=== PATIENT | male | born 1940 | race Caucasian/White ===

== ENCOUNTER 2021-08-16 07:35 | Day surgery (SDC) | payer MEDICARE ==
[2021-08-14 08:44] LABS: BASOPHILS % (AUTO) 1.8 % (0.0-5.0); EOSINOPHILS % (AUTO) 4.7 % (0.0-8.0); HEMATOCRIT 43.4 % (42-54); LYMPHOCYTES % (AUTO) 12.4 % (21.0-51.0); MEAN CORPUSCULAR HEMOGLOBIN 32.1 pg (27.0-33.0); MEAN CORPUSCULAR HGB CONC 34.6 g/dL (32.0-36.0); MEAN CORPUSCULAR VOLUME 92.7 fL (79-99); MONOCYTES % (AUTO) 12.3 % (3.0-13.0); NEUTROPHILS % (AUTO) 67.5 % (40.0-77.0); PLATELET COUNT (AUTO) 218 K/uL (130-400); RED BLOOD CELL COUNT(AUTO) 4.68 MIL/uL (4.50-6.20); RED CELL DISTRIBUTION WIDTH 12.5 % (11.0-15.5); WHITE BLOOD COUNT (AUTO) 6.2 K/uL (4.8-10.8)
[2021-08-14 08:54] LABS: CREATININE 1.3 mg/dL (0.5-1.5)
[2021-08-14 09:00] LABS: INR 1.12 (0.85-1.15); PROTHROMBIN TIME 12.1 SEC (9.6-11.6)
[2021-08-14 09:01] LABS: PARTIAL THROMBOPLASTIN TIME 30.8 SEC (26.3-35.5)
[2021-08-14 10:15] LABS: B-TYPE NATRIURETIC PEPTIDE 457 pg/mL (0-100)
[2021-08-14 10:29] VITALS: BP 129/67
[2021-08-15 09:53] LABS: APPEARANCE,URINE Clear (CLEAR); BILIRUBIN,URINE Negative (NEGATIVE); COLOR,URINE Yellow (YELLOW); GLUCOSE, URINE (UA) >=1000 mg/dL (NEGATIVE); KETONES,URINE Negative (NEGATIVE); LEUKOCYTE ESTERASE ,URINE Negative (NEGATIVE); NITRATE,URINE Negative (NEGATIVE); OCCULT BLOOD,URINE Negative (NEGATIVE); PROTEIN,URINE Negative (NEGATIVE)
[2021-08-15 10:20] LABS: BACTERIA,URINE Rare /HPF (None Seen); RBC,URINE 0-1 /HPF (0-1); SQUAMOUS EPITHELIAL CELL,UR Rare /HPF (0-2); WBC,URINE 0-1 /HPF (0-1); YEAST,URINE BUDDING Few /HPF (None Seen)
[2021-08-16] VITALS (9 sets, daily range): BP systolic 117–170; BP diastolic 54–87
[~2021-08-16] VITALS: Ht 193 cm; Wt 143.1 kg
[~2021-08-16 07:35] MED LIST: AMLO-257 PO; ASPI-1443 PO; EMPA10TA PO; FENO145T26 PO; IRBE300T18 PO; LEVO50TA4 PO; LORA10TA7 PO; METO50TA18 PO; MULT-1367 PO; SIMV-46 PO
[2021-08-16] MEDS ORDERED: 0.9%NACL 1000ML 1,000 ML IV ONE (07:41)
[2021-08-16 08:17] LABS: CREATININE 1.3 mg/dL (0.5-1.5); POTASSIUM 4.4 mmol/L (3.5-5.1)
[2021-08-16] MEDS ORDERED: FURO40TA5 PO (08:41)
[2021-08-16] MEDS ORDERED: [UNRECOGNIZED DRUG - CODE] PO (08:41)
[2021-08-16] MEDS ORDERED: IOHEXOL 350 MG/ML 100ML INFUS..BTL IV ONE (12:22)
[2021-08-16] MEDS ORDERED: BIVALIRUDIN 250 MG/VIAL IV ONE (12:22)
[2021-08-16] MEDS ORDERED: IOHEXOL-350 50ML VIAL IV ONE (12:22)
[2021-08-16] MEDS ORDERED: NITROGLYCERIN 50MG VIAL ONE (12:23)
[2021-08-16] MEDS ORDERED: LIDOCAINE HCL 400MG/20ML VIAL ONE (12:23)
[2021-08-16] MEDS ORDERED: MIDAZOLAM HCL 1 MG/ML 2ML VIAL ONE ×2 (12:41→13:51)
[2021-08-16] MEDS ORDERED: FENTANYL CITRATE PF 50 MCG/1 ML 2ML VIAL ONE (12:41)
[2021-08-16] MEDS ORDERED: HEPARIN 10,000 UNIT/10ML (1,000 UNIT/ML) VIAL ONE (13:45)
[2021-08-16] MEDS ORDERED: 0.9%NACL 1000ML 1,000 ML IV SCH (15:00)
[2021-08-16] MEDS ORDERED: DEXTROSE 50%-WATER 50 ML DISP.SYRIN IV PRN (15:00)
[2021-08-16] MEDS ORDERED: INSULIN HUMULIN R 100 UNIT/ML 3ML SQ SCH (16:30)
== END 2021-08-16 18:15 | disposition home or self-care (01) ==
LOC: DAH 07:35
PROVIDERS: ATTEND Internal Medicine Cardiovascular Disease
DX: I35.0 Nonrheumatic aortic (valve) stenosis (principal); I25.10 Atherosclerotic heart disease of native coronary artery without angina pectoris; I45.10 Unspecified right bundle-branch block; E11.22 Type 2 diabetes mellitus with diabetic chronic kidney disease; I13.0 Hypertensive heart and chronic kidney disease with heart failure and stage 1 through stage 4 chronic kidney disease, or unspecified chronic kidney disease; N18.9 Chronic kidney disease, unspecified; I50.43 Acute on chronic combined systolic (congestive) and diastolic (congestive) heart failure; E78.5 Hyperlipidemia, unspecified; E66.01 Morbid (severe) obesity due to excess calories; I48.0 Paroxysmal atrial fibrillation; Z83.3 Family history of diabetes mellitus; Z82.3 Family history of stroke; Z72.89 Other problems related to lifestyle; Z95.3 Presence of xenogenic heart valve; Z79.01 Long term (current) use of anticoagulants; Z79.899 Other long term (current) drug therapy
CPT/HCPCS: 36415 ×2; 71045; 80048 ×2; 81001; 82948; 83880; 85025; 85610; 85730; 93005; 93460; A4215; A4216; A4221; A4222; A4223 ×3; A4606; A4663; C1760; C1769 ×2; C1894 ×4; J1644 ×3; J2250; J3010; J3490 ×2; J7030; Q9965 ×2; Q9967 ×2; 96360; 96361; 99156; 99157; J0583